=== PATIENT | female | born 1950 | race Caucasian/White ===

== ENCOUNTER → 2016-05-11 | Day surgery (SDC) | payer BC, OTHER ==
--- NOTE | 2016-05-10 07:33 | SC.ANESEVA ---
Anesthesia Eval & Plan ([facility]) - Medications/Allergies Allergies: Allergies tiagabine HCl [From Gabitril] Allergy (Verified 12/06/14 20:56) Hives* Current Medication List: Reviewed - Focused Physical Exam NPO since: Since after Midnight Mallampati: Class I Thyromental Distance: Greater than 3 Neck: Full Range of Motion Dental: Normal - no significant findings Cardiovascular/Chest: Normal (RRR no mumurs or rubs.) Respiratory: Lungs clear. negative: Wheezing Any problems with anesthesia, including nausea and vomiting?: No Any relatives with a history of Malignant Hyperthermia?: No Other: Diagnoses PAIN IN RIGHT SHOULDER (05/11/16) COMPLETE ROTATR-CUFF TEAR/RUPTR OF R SHOULDER, NOT TRAUMA (05/11/16) Allergies Allergy/AdvReac Type Severity Reaction Status Date / Time tiagabine HCl [From Gabitril] Allergy Hives* Verified 12/06/14 20:56 Home Medications Medication Instructions Recorded Last Taken Type Oxycodone Immediate Release 5 mg PO Q6H PRN #30 tab 12/07/14 Unknown Rx [Oxycodone Immediate Release (OxyIR)] Height and Weight Patient's weight 65.771 kg BMI 25.7 - Anesthetic Plan Anesthesia Type: General, Post-Op Block- for Pain Control ASA Class: 3 - Focused Review of Systems Smoking Status: Never smoker
--- NOTE | 2016-05-10 07:35 | PCM.PROCED ---
Procedure Note DATE OF PROCEDURE: 05/11/16 PREOPERATIVE DIAGNOSIS: Post-operative Pain Control. POSTOPERATIVE DIAGNOSIS: Same PROCEDURE: Brachial Plexus Block at interscalene PERFORMING PROVIDER: Wanda Martinez Jr, MD TIME OUT: Completed MEDICATIONS: 30cc of Bupivacaine 0.5% Plain NEEDLE: STIMUPLEX 21G X 2" STERILE BARRIERS: Cap, mask, sterile gloves used. COMPLICATIONS: None. BLOOD LOSS: 0 cubic centimeters. PROCEDURE FINDINGS AND TECHNIQUE: At the request of the Operative Surgeon and patient, a Brachial Plexus Block was performed for post-operative pain relief. Risk, benefits and alternatives of the procedure were explained. Informed consent was obtained and surgical site confirmed with patient and chart. Time out was performed. Pulse oximetry, EKG and BP monitoring were established.. The right neck was prepped in a sterile manner. The Brachial plexus was visualized by ultrasound. A Stimuplex needle was inserted in the proximity of the nerves. Under direct visualization local anesthetic was injected in incremental volumes of 5 ml with negative aspirations throughout. There was no pain on injection. B-Smart manometer used. A peripheral nerve stimulator was used to assist in localizing the brachial plexus. Appropriate paresthesia and/or muscle response was noted at 0.5mA current. No muscle response noted at 2mA or less. Patient tolerated the procedure well without complications and the case was continued under general anesthesia as was the request of the patient.
[2016-05-10 11:51] VITALS: BMI 25.2
[~2016-05-11] MED LIST: DEXAMETHASONE 4 MG/ML VIAL IV PRN; DEXAMETHASONE 4 MG/ML VIAL ONE; DIAZEPAM 5 MG TAB PO PRN; EPHEDrine 50 MG/ML VIAL ONE; FENTANYL 100 MCG/2 ML VIAL IV PRN; FENTANYL 100 MCG/2 ML VIAL ONE; HYDROCODONE 5 MG/ACETAMIN 325 MG TAB PO PRN; KETOROLAC TROMETH 30 MG/ML VIAL IV PRN; KETOROLAC TROMETH 30 MG/ML VIAL ONE; LABETALOL 20 MG/4 ML SYRINGE IV PRN; LR 1,000 ML IV ONE; LR 1,000 ML IV SCH; MIDAZOLAM 2 MG/2 ML VIAL ONE; NS 1,000 ML IV SCH; NS 250 ML IV SCH; ONDANSETRON HCL 4 MG/2 ML VIAL IV PRN; ONDANSETRON HCL 4 MG/2 ML VIAL ONE; PROPOFOL 200 MG/20 ML VIAL IV ONE; ROCURONIUM 50 MG/5 ML VIAL IV ONE; SCOPOLAMINE TRANSDERMAL PATCH TOP PRN; hydrALAZINE 20 MG/ML VIAL IV PRN
--- NOTE | 2016-05-11 10:36 | PCM.DCS92 ---
Discharge Outpatient Note - Final/Secondary Discharge Diagnosis (1) Right rotator cuff tear Acute M75.101 - UNSP ROTATR-CUFF TEAR/RUPTR OF RIGHT SHOULDER, NOT TRAUMA [id number] complete M75.121 - Complete rotator cuff tear or rupture of right shoulder, not specified as traumatic Physician Follow up/Referrals: Galen Montoya MD [Staff Physician] - Listed Time Additional Instructions: Instructions given: 05/11/16 Prescriptions (given at the office) Diet as tolerated Discharge Instructions: Shoulder Arthroscopy * Ultrasling to operative arm , DO NOT remove * Apply ice to the surgical shoulder for 15-20 minutes out of each hour while awake for the first 2 days post-op, then apply as often as needed to control swelling and pain * Keep Bandage clean and dry * May shower after Physical Therapy appointment * Take stool softener while taking pain medication Follow up in office as scheduled - Call office for any additional concerns. ) Follow up with Physical therapy as scheduled
--- NOTE | 2016-05-11 11:14 | HIMOPRPT ---
DATE OF PROCEDURE: May 11, 2016 PREOPERATIVE DIAGNOSIS: Right shoulder supraspinatus tendon tear with type 3 acromion. POSTOPERATIVE DIAGNOSIS: Same PROCEDURES: Arthroscopic: 1. Rotator cuff repair. 2. Subacromial decompression. ANESTHESIA: General with regional interscalene block. COMPLICATIONS: None. TOURNIQUET TIME: Not applicable. IMPLANTS: Include four 4.75-mm SwiveLock anchors. SURGEON: Galen Montoya MD. STEAM SHOVEL OILER: BINH Wilcox. FINDINGS: Include full-thickness supraspinatus tendon tear with retraction in the configuration of a L-shaped type tear, extensive delamination with mild synovitis . significant tendinopathy. Some grade 2 changes to the superior aspect of the humeral head were noted. Mild Subscap tendinopathy present. SIGNIFICANT HISTORY, INDICATIONS, AND CONSENT: Cher is a 65-year-old right- hand-dominant female with long-standing history of right shoulder pain, recalcitrant to conservative treatment, who after MRI wished to proceed with surgical intervention for potential improvement in pain and function as well as range of motion. Consent was obtained. OPERATION IN DETAIL: The patient was seen in the preop holding area. The right shoulder was signed. Consent was reviewed. Questions were answered. H and P updated. SCD placed on bilateral lower extremities. The patient underwent a regional interscalene block, was taken to the operative room and placed in supine position on the operating table. Anesthesia placed monitoring devices and performed LMA intubation. The patient was then carefully positioned in the beach-chair position with the right upper extremity carefully positioned as well as the head and neck positioned to avoid any impingement or irritation of bony prominences. After this was carefully positioned with hips and knees flexed and padded, right upper extremity was sterilely prepped and draped in usual orthopedic fashion. Time-out was performed. The patient received prophylactic antibiotics, and consensus was reached amongst participants in the OR suite. Exam under anesthesia revealed no significant range of motion deficits. Next, we then made a small incision posteriorly for posterior portal. Glenohumeral joint was inspected with some grade 2 changes noted on the superior anterior aspect of the humeral head. Full-thickness rupture of the supraspinatus with retraction approximately 3 cm was noted intra- articularly. Mild subscapularis tendinopathy was present. Some intra- articular synovitis was present which was debrided. We then entered the subacromial space where supraspinatus footprint was debrided using a shaver removing a fine layer of cortical cancellous bone along with remaining cuff tissue. The tendon was then probed after stand wishing a lateral working portal and anterolateral portal for visualization. A L type configuration was present with severe tendinopathy and delamination of the tendon. With careful observation we decided to proceed with a rotator cuff repair placing 2-4.75 mm SwiveLock anchors loaded with FiberTape in the medial row at the articular margin. Sutures were then placed anteriorly and posteriorly in the cuff for an acceptable suture bridge construct. Two anterior stitches from each anchor were then passed through a 4.75 mm anchor and anchored to the lateral cortex of the humerus anteriorly. This process was repeated posteriorly completing the suture bridge construct. This left a slight some gap in the central portion of the tendon which was repaired with a total of 3 marginal convergence sutures using 2. FiberWire suture. After the cuff repair was completed and found to be acceptable reduced to our footprint we then performed a subacromial decompression using a posterior cutting block technique after visualization of the degenerative coracoacromial ligament and type 3 acromion on outlet view. The shoulder was then thoroughly lavaged. Our instruments were removed. Incision sites were closed with 4-0 nylon suture. Sterile soft tissue dressing was placed. The patient was aroused by Anesthesia and taken to the postanesthesia care unit in stable condition. PLAN: The patient will be discharged home when okay with Anesthesia. Prescriptions will be given for p.r.n. pain, constipation, nausea, and vomiting. She will return to clinic postop day 10 for suture removal and wound check. Begin physical therapy postop week 6 and begin early gentle pendulum exercises immediately . Okay to begin full elbow, wrist, and hand range of motion.
[2016-05-11 14:51] VITALS: TEMP 97
[2016-05-11 14:53] VITALS: BP 136/61; PULSE 110
--- NOTE | 2016-05-14 10:04 | SC.ANESPOS ---
Post-Anesthesia Note LOC: Fully Awake Post-Anesthesia Assessment: Awake, Returned to Baseline, Hemodynamically Stable , Pain Control Adequate Phase I & II Recovery Complete: Yes Apparent Anesthesia Complication: No : N - Vital Signs Blood Pressure: 136/61 Pulse: 110 Resp Rate: 16 O2 Sat: 93 Temp: 97 F
== END ==
LOC: CPSC 07:51
PROVIDERS: ATTEND Orthopaedic Surgery
PROC: 0RNJ4ZZ Release Right Shoulder Joint, Percutaneous Endoscopic Approach (ICD-10-PCS; 2016-05-11)
PROC: 0LQ14ZZ Repair Right Shoulder Tendon, Percutaneous Endoscopic Approach (ICD-10-PCS; principal; 2016-05-11 10:15)
DX: M75.121 Complete rotator cuff tear or rupture of right shoulder, not specified as traumatic (principal); M75.51 Bursitis of right shoulder; M19.90 Unspecified osteoarthritis, unspecified site; E03.9 Hypothyroidism, unspecified; G62.9 Polyneuropathy, unspecified; Z79.899 Other long term (current) drug therapy
CPT/HCPCS: 29826; 29827; J0171; J1100; J1885; J2250; J2405; J2704; J3010; J3490